=== PATIENT | male | born 1945 | race Hispanic/Latino ===

== ENCOUNTER 2022-06-26 01:14 | Inpatient (IN) | payer MEDICAID, SELFPAY ==
[2022-06-26 01:51] LABS: #Basophils 0.1 thou/uL (0.0-0.2); #Eosinphils 0.4 thou/uL (0.0-0.7); #Lymphocytes 2.6 thou/uL (1.20-3.40); #Monocytes 0.5 thou/uL (0.11-0.59); #Neutrophils 6.2 thou/uL (1.40-6.50); %Basophils 0.7 % (0.0-1.0); %Eosinophils 3.9 % (0.0-10.0); %Lymphocytes 27.2 % (21.0-51.0); %Monocytes 4.7 % (0.0-10.0); %Neutrophils 63.5 % (42.0-75.0); Mean Corpuscular HGB CONC 33.6 g/dL (32.0-36.0); Mean Corpuscular Hemoglobin 31.9 pg (27.0-31.0); Mean Corpuscular Volume 94.9 fL (78.0-98.0); Mean Platelet Volume 6.6 fL (7.4-10.4); Platelet Count 262 thou/uL (130-400); RBC Distribution Width 11.7 % (11.5-14.5); Red Blood Cell (RBC) Count 4.39 mill/uL (4.70-6.10); White Blood Cell (WBC) Count 9.7 thou/uL (4.8-10.8)
[2022-06-26 02:03] LABS: Bacteria/HPF None Seen HPF (None Seen); Bilirubin Negative (Negative); Blood, Urine Trace (Negative); Clarity Clear (Clear); Glucose, Urine (Dipstick) Normal (Negative); Ketone, Urine Negative (Negative); Leukocyte Negative Leu/uL (Negative); Nitrite Negative (Negative); Protein, Urine (Dipstick) 10 mg/dL (Neg-Trace); RBC/HPF 0-3 HPF (0-3); Specific Gravity, Urine 1.013 (1.002-1.036); Squamous Epithelial 0-3 HPF (0-3); Urobilinogen Normal mg/dL (Less than 2); WBC/HPF 0-3 HPF (0-3); pH, Urine 5.5 (5.0-9.0)
[2022-06-26 02:08] LABS: ALT (SGPT) 10 U/L (8-55); AST (SGOT) 17 U/L (5-34); Alkaline Phosphatase 86 U/L (40-110); Anion Gap 15 mmol/L (10-20); BUN (Urea Nitrogen) 11 mg/dL (8.4-25.7); Bilirubin, Total 0.5 mg/dL (0.2-1.2); Calc. Creatinine Clearance 0 mL/min (70-130); Calcium 9.4 mg/dL (7.8-10.44); Carbon Dioxide 22 mmol/L (23-31); Chloride 105 mmol/L (98-107); Estimated GFR 75; Globulin 2.9 g/dL (2.4-3.5); Glucose 137 mg/dL (83-110); Potassium 3.2 mmol/L (3.5-5.1); Protein, Total 6.9 g/dL (5.8-8.1); Sodium 139 mmol/L (136-145)
[2022-06-26 05:38] LABS: SARS-CoV-2 NAA Rapid Test Not Detected (NotDetected)
[2022-06-26] MEDS ORDERED: Aspirin 325 mg Enteric Coated Tablet PO SCH (06:35)
[2022-06-26] MEDS ORDERED: Ondansetron ODT 4 MG TAB PO PRN (06:36)
[2022-06-26] MEDS ORDERED: hydrALAZINE 20 MG/ML VIAL SLOW IVP PRN ×2 (06:36→18:40)
[2022-06-26] MEDS ORDERED: Ondansetron PF 4 MG/2 ML Vial IVP PRN (06:36)
[2022-06-26] MEDS ORDERED: Acetaminophen 325 MG TAB PO PRN (06:36)
[2022-06-26] MEDS ORDERED: Acetaminophen 650 MG Suppository PR PRN (06:36)
[2022-06-26] MEDS ORDERED: Potassium Chloride 20 MEQ TAB PO SCH (07:45)
[2022-06-26 07:53] LABS: Anion Gap 10 mmol/L (10-20); BUN (Urea Nitrogen) 15 mg/dL (8.4-25.7); Calc. Creatinine Clearance 0 mL/min (70-130); Calcium 9.3 mg/dL (7.8-10.44); Carbon Dioxide 26 mmol/L (23-31); Chloride 104 mmol/L (98-107); Estimated GFR 91; Glucose 109 mg/dL (83-110); Magnesium 1.9 mg/dL (1.6-2.6); Sodium 136 mmol/L (136-145)
[2022-06-26] MEDS ORDERED: Aspirin 325 MG TAB ONE (08:10)
[2022-06-26] MEDS ORDERED: Potassium Chloride 20 MEQ TAB ONE (08:11)
[2022-06-26] MEDS ORDERED: Aspirin Chewable 81 MG TAB ONE (10:21)
[2022-06-26] MEDS ORDERED: Enoxaparin Sodium 40 MG/0.4 ML SYRINGE ONE (10:21)
[2022-06-26] MEDS: Enoxaparin Sodium 40 MG/0.4 ML SYRINGE SC SCH (10:26)
[2022-06-26] MEDS ORDERED: Methocarbamol 500 MG TAB PO PRN (13:41)
[2022-06-26] MEDS ORDERED: HYDROcodone/Acetaminophen 5/325 mg Tablet PO PRN (13:42)
[2022-06-26 16:55] VITALS: BMI 23.1
[2022-06-27 05:02] LABS: #Basophils 0.1 thou/uL (0.0-0.2); #Eosinphils 0.3 thou/uL (0.0-0.7); #Lymphocytes 2.6 thou/uL (1.20-3.40); #Monocytes 0.6 thou/uL (0.11-0.59); #Neutrophils 4.9 thou/uL (1.40-6.50); %Basophils 0.7 % (0.0-1.0); %Eosinophils 3.8 % (0.0-10.0); %Lymphocytes 30.1 % (21.0-51.0); %Monocytes 7.4 % (0.0-10.0); %Neutrophils 58.1 % (42.0-75.0); Hemoglobin 14.3 g/dL (14.0-18.0); Mean Corpuscular Hemoglobin 31.5 pg (27.0-31.0); Mean Corpuscular Volume 95.4 fL (78.0-98.0); Mean Platelet Volume 6.9 fL (7.4-10.4); Platelet Count 253 thou/uL (130-400); RBC Distribution Width 11.6 % (11.5-14.5); Red Blood Cell (RBC) Count 4.53 mill/uL (4.70-6.10); White Blood Cell (WBC) Count 8.5 thou/uL (4.8-10.8)
[2022-06-27 05:22] LABS: Anion Gap 11 mmol/L (10-20); BUN (Urea Nitrogen) 16 mg/dL (8.4-25.7); Calc. Creatinine Clearance 70 mL/min (70-130); Calcium 8.9 mg/dL (7.8-10.44); Carbon Dioxide 24 mmol/L (23-31); Cardiac Risk 4.3 (Less than 4.5); Chloride 105 mmol/L (98-107); Cholesterol 172 mg/dl (< 200 Desired); Estimated GFR 90; Glucose 101 mg/dL (83-110); HDL Cholesterol 40 mg/dL (>60 Neg Risk); LDL Cholesterol, Calculated 107 mg/dL; Potassium 3.9 mmol/L (3.5-5.1); Sodium 136 mmol/L (136-145); Triglycerides 124 mg/dL (Less than 150)
[2022-06-27] MEDS ORDERED: Aspirin 81 mg Enteric Coated Tablet PO SCH (09:00)
[2022-06-27] MEDS: Enoxaparin Sodium 40 MG/0.4 ML SYRINGE SC SCH (10:31)
[2022-06-27] MEDS ORDERED: Amlodipine 5 MG TAB PO SCH (14:45)
[2022-06-27 16:14] VITALS: BP 157/72; TEMP 97.6
[2022-06-28] MEDS ORDERED: Amlodipine 5 MG TAB PO SCH (09:00)
== END 2022-06-27 20:10 | disposition home or self-care (01) | DRG 301 ==
LOC: ERS 01:14 → ERHOLD 04:40 → 2SW 15:26 → OBSVTOIN 06-27 16:50
PROVIDERS: ADMIT Internal Medicine; ATTEND Internal Medicine
DX: I73.9 Peripheral vascular disease, unspecified (principal); Z20.822 Contact with and (suspected) exposure to COVID-19; F17.210 Nicotine dependence, cigarettes, uncomplicated; R29.6 Repeated falls
CPT/HCPCS: 36415; 70450; 70551; 72148; 72195; 80048; 80053; 80061; 81003; 81015; 82550; 83735; 84484; 85025; 93005; 93306; 93922; 96372; G0378; J1650; U0002

== ENCOUNTER 2022-07-21 10:14 | Outpatient (CLI) | payer MEDICARE ==
[2022-07-21] MEDS ORDERED: Iopamidol 370 76% 100 ML VIAL ONE (12:29)
== END 2022-07-21 10:15 | disposition home or self-care (01) ==
LOC: CT 10:14
PROVIDERS: ATTEND Thoracic Surgery (Cardiothoracic Vascular Surgery)
DX: I70.213 Atherosclerosis of native arteries of extremities with intermittent claudication, bilateral legs (principal); I70.8 Atherosclerosis of other arteries
CPT/HCPCS: 75635; Q9967